=== PATIENT | female | born 1995 | race Caucasian/White ===

== ENCOUNTER 2025-01-10 00:28 | Emergency (ER) | payer SELFPAY ==
[~2025-01-10] VITALS: Ht 162.6 cm; Wt 68.0 kg
[2025-01-10 00:50] VITALS: BP 112/54; PULSE 90; RESP 16; TEMP 36.2; O2SAT 96
[2025-01-10 01:50] LABS: CHLORIDE 104 mEq/L (98-107); POTASSIUM 3.9 mEq/L (3.5-5.1); SODIUM 135 mEq/L (136-145)
[2025-01-10 01:51] LABS: CARBON DIOXIDE 21 mEq/L (21-32)
[2025-01-10 01:52] LABS: CALCIUM 8.5 mg/dL (8.7-10.4)
[2025-01-10 01:56] LABS: CREATININE 0.6 mg/dL (0.6-1.0)
[2025-01-10 01:57] LABS: ETHANOL BLOOD 209 mg/dL (<10); GLUCOSE 112 mg/dL (70-105); UREA NITROGEN BLOOD 8 mg/dL (9-23)
[2025-01-10 02:15] LABS: HCG SCREEN NEGATIVE
[2025-01-10 02:18] LABS: BASOPHILS % 0.1 % (0.0-2.0); EOSINOPHILS % 0.1 % (0.0-5.0); HEMATOCRIT. 36.2 % (36.0-48.0); LYMPHOCYTES % 22.5 % (20.0-50.0); MEAN CORPUSCULAR HGB CONC 33.2 g/dL (31.0-37.0); MEAN CORPUSCULAR VOLUME 87.4 fL (81.0-99.0); MEAN PLATELET VOLUME 7.2 fl (7.4-10.4); NEUTROPHILS % 75.3 % (40.0-76.0); PLATELET 288 x1000/uL (130-400); RED BLOOD CELL COUNT 4.14 mill/uL (4.2-5.4); RED CELL DISTRIBUTION WIDTH 13.2 % (11.6-14.6); WHITE BLOOD COUNT 6.9 x1000/uL (4.5-11.0)
== END 2025-01-10 04:20 | disposition home or self-care (01) ==
LOC: ER 00:28
DX: F10.129 Alcohol abuse with intoxication, unspecified (principal); Y90.7 Blood alcohol level of 200-239 mg/100 ml
CPT/HCPCS: 36415; 80048; 80320; 84703; 85025; 99283; G0480